=== PATIENT | female | born 1970 | race Native Hawaiian/Other Pacific Islander ===

== ENCOUNTER 2018-01-29 13:50 | Outpatient (CLI) | payer BC, MEDICARE ==
--- NOTE | 2018-01-29 14:38 | XRay Report ---
LEFT SHOULDER: Pain. Routine views demonstrate normal bony and soft tissue structures with normal joint alignment of the shoulder. IMPRESSION: Normal study.
== END 2018-01-29 13:51 | disposition home or self-care (01) ==
LOC: SPVIMAG 13:50
PROVIDERS: ATTEND Orthopaedic Surgery
DX: M25.512 Pain in left shoulder (principal)